=== PATIENT | female | born 1985 | race Caucasian/White ===

== ENCOUNTER 2017-03-10 16:33 | Emergency (ER) | payer MEDICAID, OTHER ==
[~2017-03-10] VITALS: Ht 149.9 cm; Wt 72.1 kg
[2017-03-10 18:12] VITALS: BP 127/87
--- NOTE | 2017-03-10 18:14 | NUR ---
Patient to bed 06.
--- NOTE | 2017-03-10 18:32 | NUR ---
C/O DIZZINESS X 1 WK; BLURRED VISSION ON RIGHT EYE PRIOR TO ADMISSION; DENIES N/V/D HX; DENIES, NO VOMITTING NOTED ,NO CHEST PAIN,SKIN WARM TO TOUCH RESP. EVEN AND UNLABORED, PT AAO, NO SOB NOTED AT THIS TIME.
--- NOTE | 2017-03-10 18:40 | NUR ---
RUBI LOPEZ AT BEDSIDE
--- NOTE | 2017-03-10 19:00 | NUR ---
RUBI LOPEZ AWARE OF THE RESULT OF OTRHOSTATIC VITAL SIGN
[2017-03-10 19:28] VITALS: BP 129/95
== END 2017-03-10 19:28 | disposition home or self-care (01) ==
LOC: MED 16:33
DX: H81.10 Benign paroxysmal vertigo, unspecified ear (principal); H53.8 Other visual disturbances; I10 Essential (primary) hypertension
CPT/HCPCS: 82948; 99283

== ENCOUNTER 2019-01-04 19:11 | Emergency (ER) | payer OTHER ==
[~2019-01-04] VITALS: Ht 149.9 cm; Wt 74.8 kg
[2019-01-04 19:20] VITALS: BP 119/82
--- NOTE | 2019-01-04 19:22 | NUR ---
to lobby a/w bed ambulatory
--- NOTE | 2019-01-04 20:14 | NUR ---
PT C/O LOWER ABD PAIN X1 DAY. DENIES N/V/D. INTERMITTENT SHARP 9/10 PAIN. ABD ROUND. SOFT, TENDER TO PALPATION ON LOWER ABD. DENIES FEVER. PT TOOK TYLENOL AT 0700 WITH NO PAIN RELIEF. LAST BM TODAY @ 1000. NO CHANGE IN APPETITE. RESPIRATIONS EVEN, UNLABORED. RESTING IN BED, CALM AND PLEASANT. MEDHX: DENIES ALLERGIES: DENIES
[2019-01-04] MEDS ORDERED: KETOROLAC 60 MG/2 ML VIAL IM ONE (20:40)
--- NOTE | 2019-01-04 21:51 | NUR ---
Patient discharged with v/s stable. Written and verbal after care instructions given and explained. Patient alert, oriented and verbalized understanding of instructions. Ambulatory with to home. All questions addressed prior to discharge. ID band removed. Patient advised to follow up with PMD. Rx of IBURPROFEN 600 MG given. Patient educated on indication of medication including possible reaction and side effects. Opportunity to ask questions provided and answered.
[2019-01-04 21:52] VITALS: BP 118/81
== END 2019-01-04 21:51 | disposition home or self-care (01) ==
LOC: MED 19:11
DX: R10.31 Right lower quadrant pain (principal); I10 Essential (primary) hypertension
CPT/HCPCS: 81002; 81025; 96372; 99283; J1885

== ENCOUNTER 2021-10-18 22:41 | Emergency (ER) | payer OTHER ==
[~2021-10-18] VITALS: Ht 149.9 cm; Wt 61.7 kg
[2021-10-18 23:00] VITALS: BP 105/59
--- NOTE | 2021-10-19 00:09 | NUR ---
PT TAKEN TO BED 07
--- NOTE | 2021-10-19 00:10 | NUR ---
PT RETURN FROM RADIOLOGY
[2021-10-19 00:48] VITALS: BP 110/60
--- NOTE | 2021-10-19 00:48 | NUR ---
36 Y/O F BIB SELF FOR UPPER BACK PAIN X1 DAY. PT STATES SHE WOKE UP WITH BACK PAIN. PT STATES SHE WAS SEEN BEFORE FOR BACLK PAIN AND WAS GIVEN CYCLOBEZEPRINE. PT STATES IT HAS NOT HELPED. PT DENIES N/F/V/D/COUGH/ CHEST PAIN. PT STATES PAIN WAS UNPROVOKED. PT DENIES PMH PT DENIES ALLERGIES.
[2021-10-19] MEDS ORDERED: NAPR-54 PO (01:10)
[2021-10-19] MEDS ORDERED: DIAZ5TAB6 PO (01:10)
--- NOTE | 2021-10-19 01:18 | NUR ---
Patient discharged with v/s stable. Written and verbal after care instructions given and explained. Patient alert, oriented and verbalized understanding of instructions. Ambulatory with steady gait. All questions addressed prior to discharge. ID band removed. Patient advised to follow up with PMD. Rx of NAPROSYN AND VALIUM given. Patient educated on indication of medication including possible reaction and side effects. Opportunity to ask questions provided and answered.
--- NOTE | 2021-10-19 01:22 | NUR ---
The patient's care was reviewed and supervised by Glenda Lockwood RN.
== END 2021-10-19 01:18 | disposition home or self-care (01) ==
LOC: MED 22:41
DX: M54.6 Pain in thoracic spine (principal); I10 Essential (primary) hypertension; Z90.49 Acquired absence of other specified parts of digestive tract
CPT/HCPCS: 71045; 99283

== ENCOUNTER 2022-04-10 23:34 | Emergency (ER) | payer OTHER ==
[~2022-04-10] VITALS: Ht 147.3 cm; Wt 60.6 kg
[~2022-04-10 23:34] MED LIST: DIAZ5TAB6 PO; NAPR-54 PO
[2022-04-10 23:43] VITALS: BP 116/75
--- NOTE | 2022-04-10 23:47 | NUR ---
Patient taken to bed 9.
--- NOTE | 2022-04-10 23:50 | NUR ---
Patient BIB by family. C/O mid chest pain x 2 days. Patient reported, had sore throat, and chest pain for 2 days. Patient tested COVID-19 positive on 04/08/22. A/O,X4, mid chest pain, pain rate 6/10, no radiate, burning pain. no N/V/D.
--- NOTE | 2022-04-11 00:14 | NUR ---
Dr. Ya examining patient.
[2022-04-11] MEDS ORDERED: LORazepam 0.5 MG TAB PO ONE (00:20)
--- NOTE | 2022-04-11 00:24 | NUR ---
X-Ray at bedside.
[2022-04-11] MEDS ORDERED: NAPR-54 PO (00:29)
[2022-04-11] MEDS ORDERED: ALBU0.0912 INH (00:29)
[2022-04-11 00:38] VITALS: BP 96/63
--- NOTE | 2022-04-11 00:38 | NUR ---
Patient discharged with v/s stable. Written and verbal after care instructions given and explained. Patient verbalized understanding. Ambulatory with steady gait. All questions addressed prior to discharge. Advised to follow up with PMD.
== END 2022-04-11 00:38 | disposition home or self-care (01) ==
LOC: MED 23:34
DX: U07.1 COVID-19 (principal); R07.9 Chest pain, unspecified; Z90.49 Acquired absence of other specified parts of digestive tract
CPT/HCPCS: 71045; 93005; 99283; Q0092

== ENCOUNTER 2022-09-12 11:15 | Emergency (ER) | payer OTHER ==
[~2022-09-12] VITALS: Ht 149.9 cm; Wt 63.0 kg
[~2022-09-12 11:15] MED LIST changes: +ALBU0.0912 INH
--- NOTE | 2022-09-12 11:47 | NUR ---
Patient ambulated to bed 6.
[2022-09-12 11:50] VITALS: BP 118/75
--- NOTE | 2022-09-12 11:58 | NUR ---
"IT HURTS WHEN I TIP TOE" PT ABLE TO TIP TOE
--- NOTE | 2022-09-12 12:00 | NUR ---
36 y/o female bib self with c/o right lateral foot bunion pain and right alicia pain. Patient has been having increased pain when she started the job she curently has right now. Patient is able to ambulate. Patient denies taking any medication prior to arrival. Medical History: Denies NKDA
--- NOTE | 2022-09-12 12:25 | NUR ---
PA Sethi evaluating patient at bedside.
[2022-09-12] MEDS ORDERED: IBUP-2213 PO (12:31)
[2022-09-12] MEDS ORDERED: IBUPROFEN 600 MG TAB PO ONE (12:35)
[2022-09-12] MEDS ORDERED: IBUPROFEN 600 MG TAB ONE (12:42)
[2022-09-12 13:01] VITALS: BP 103/74
--- NOTE | 2022-09-12 13:01 | NUR ---
Patient discharged with v/s stable. Written and verbal after care instructions given. Patient alert, oriented and verbalized understanding of instructions. Ambulatory with steady gait. All questions addressed prior to discharge. ID band removed. Patient advised to follow up with PMD. Rx of Iburofen given. Opportunity to ask questions provided and answered. WORK NOTE HANDED TO PATIENT.
--- NOTE | 2022-09-12 13:03 | NUR ---
The patient's care was reviewed and supervised by Dilcia Serrato, RN, RN.
== END 2022-09-12 13:01 | disposition home or self-care (01) ==
LOC: MED 11:15
DX: S86.911A Strain of unspecified muscle(s) and tendon(s) at lower leg level, right leg, initial encounter (principal); M21.611 Bunion of right foot; I10 Essential (primary) hypertension; Z79.899 Other long term (current) drug therapy; Z79.1 Long term (current) use of non-steroidal anti-inflammatories (NSAID); X58.XXXA Exposure to other specified factors, initial encounter; Y92.89 Other specified places as the place of occurrence of the external cause; Y93.89 Activity, other specified; Y99.8 Other external cause status
CPT/HCPCS: 99282